=== PATIENT | male | born 2000 | race Caucasian/White ===

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

== ENCOUNTER → 2019-01-07 | Outpatient (CLI) | payer OTHER ==
--- NOTE | 2019-01-07 12:20 | Diagnostic Imaging Report ---
INDICATION: Right hand fracture, followup. TECHNIQUE: AP, oblique, and lateral views of the right hand were obtained. COMPARISON: 12/16/2018. FINDINGS: There is no change in the alignment or appearance of the fracture of the base of the fifth metacarpal. The remaining bony structures are intact. The joint spaces are unremarkable. IMPRESSION: Stable alignment of the fracture of the base of the fifth metacarpal with no new abnormality. Dictated by: Dictated on workstation # [id number]
== END ==
LOC: RAD FS 09:02
PROVIDERS: ATTEND Nurse Practitioner
DX: S62.316D Displaced fracture of base of fifth metacarpal bone, right hand, subsequent encounter for fracture with routine healing (principal)
CPT/HCPCS: 73130

== ENCOUNTER 2019-05-14 17:28 | Emergency (ER) | payer OTHER ==
[~2019-05-14] VITALS: Ht 182.8 cm; Wt 91.7 kg
[2019-05-14 17:40] VITALS: BP 141/77
--- NOTE | 2019-05-14 17:59 | ED Lower Extremity ---
General Chief Complaint: Lower Extremity Stated Complaint: KICK LEFT LEG BY COW History of Present Illness Date Seen by Provider: May 14, 2019 Time Seen by Provider: 17:35 Initial Comments The patient is a 19-year-old male who is otherwise healthy. He presents with concern for acute onset of left knee and upper pretibial discomfort medially with onset after being kicked by a cow in that area about 5 hours prior to arrival. Patient has been ambulatory with an antalgic gait on the leg in question since the injury. He took ibuprofen without complete relief of symptoms. No other injury during the episode. No other concerns today. Allergies and Home Medications Allergies Coded Allergies: No Known Drug Allergies (Unverified , 12/17/17) Home Medications Amoxicillin/Potassium Clav 1 Each Tablet, 1 EACH PO BID Prescribed by: SHERRY LOWRY on 12/20/17 112 Hydrocodone Bit/Acetaminophen 1 Tab Tab, 1-2 TAB PO Q4H PRN for PAIN-MODERATE Prescribed by: SHERRY LOWRY on 12/20/17 112 Prednisone 20 Mg Tab, 20 MG PO UD PREDNISONE 20MG TABLETS -TAKE 2 TABLETS BY MOUTH DAILY X3 DAYS -TAKE 1 TABLET BY MOUTH DAILY X3 DAYS -THEN OFF Prescribed by: SHERRY LOWRY on 12/20/17 1126 Patient Home Medication List Home Medication List Reviewed: Yes Review of Systems Constitutional: see HPI All Other Systems Reviewed Negative Unless Noted: Yes (Negative excepted noted.) Past Vxubihx-Gtnqfj-Lnavah Hx Past Med/Social Hx: Reviewed Nursing Past Med/Soc Hx Patient Social History Recent Foreign Travel: No Contact w/Someone Who Travel: No Recent Hopitalizations: No Seasonal Allergies Seasonal Allergies: No Past Medical History Appendectomy Reproductive Disorders: No Sexually Transmitted Disease: No HIV/AIDS: No Adverse Reaction/Blood Tranf: No (N/A) Family Medical History Reviewed Nursing Family Hx Physical Exam Vital Signs Capillary Refill : Height, Weight, BMI Height: 6'0.00" Weight: 190lbs. 0.0oz. [id number]; 25.8 BMI Method: General Appearance: no apparent distress This is a young male appearing nontoxic and in no acute distress. Head is normocephalic and atraumatic. Neck is supple and nontender. Oropharynx is moist. Lungs are clear to auscultation in all stations. There is a normal S1 and S2 without rubs or gallops and capillary refill is appropriate, less than 2 seconds globally. Abdomen is soft, nontender and nondistended. Skin is warm and dry without cyanosis, clubbing or edema. Psychiatrically, the patient demonstrates appropriate mood and affect and is alert. For a musculoskeletal standpoint, evaluation of the left lower extremity is remarkable for mild tenderness and swelling to the inferomedial aspect of the left knee and the superomedial aspect of the left pretibial area. Mild limitation in ranging actively and passively secondary to discomfort. Lockman's and anterior and pos terior drawer testing are negative. No pain with ranging of any other joint of the left lower extremity. The left lower extremity is neurovascularly intact distally with strength 5 out of 5, sensation intact to light touch in all nerve distributions, DP/PT pulses 2+, capillary refill less than 2 seconds, foot warm and well-perfused. Progress/Results/Core Measures Results/Orders My Orders Orders - POONAM KELSEY MD Ibuprofen Tablet (Motrin Tablet) (05/14/19 18:00) Acetaminophen Tablet/Caplet (Tylenol T (05/14/19 18:00) Knee 3 View Left (05/14/19 17:50) Tibia Fibula 2 View Left (05/14/19 17:50) Medications Given in ED Current Medications Medications Dose Ordered Sig/Maurice Route Start Time Stop Time Status Last Admin Dose Admin Acetaminophen 975 mg ONCE ONCE PO 05/14/19 18:00 05/14/19 18:01 DC 05/14/19 18:08 975 MG Progress Progress Note : Time: 17:58 Progress Note Clinical examination reassuring. Unlikely there is a fracture based on examination and the patient's ability to ambulate. We will check plain films and give ibuprofen and Tylenol and an ice pack and will plan for Korey wrap and crutches for weightbearing as tolerated if imaging is negative. Patient and family understand and agree with this plan of care. Update 1820: Plain films are negative and patient is feeling better after medications. We'll proceed with discharge home as per plan above. Patient is counseled to follow up with primary care in the next 2-4 days, to weight-bear as tolerated and to rest, ice and elevate his left leg. He understands that if he feels worse is that of better or develops other new symptoms of concern that he should return to the emergency department immediately for reevaluation. All questions are answered. Diagnostic Imaging Comments XR knee and tib/fib L: no acute process, EP and rad interp Departure Impression Primary Impression: Contusion of left knee, initial encounter Disposition: 01 HOME, SELF-CARE Condition: Improved Departure-Patient Inst. Referrals: ALYSIA PAULA MD (PCP/Family) Primary Care Physician Patient Instructions: Contusion (DC) Add. Discharge Instructions: X-rays showed no fractures today. Your knee and upper mcghee are most likely bruised. You may bear weight on her your left leg as tolerated. Rest, ice and elevate your leg and allow it to heal. He may follow up with her primary care doctor in the next 2-4 days. If your knee doesn't improve in the next week or two, you may ultimately need an MRI to further evaluate your injuries, but your knee will likely heal before that. Return to the emergency department right away with worsen symptoms or other new concerns. Scripts Acetaminophen (Tylenol) 325 Mg Capsule 975 MG PO Q8H for 4 Days, #50 CAP Prov: POONAM KELSEY MD 05/14/19 Ibuprofen (Ibuprofen) 800 Mg Tablet 800 MG PO Q8H PRN for PAIN, #30 TAB 0 Refills Prov: POONAM KELSEY MD 05/14/19 POONAM KELSEY MD May 14, 2019 17:59 POS
[2019-05-14] MEDS ORDERED: IBUPROFEN 800 MG (MOTRIN) TAB PO SCH (18:00)
[2019-05-14] MEDS ORDERED: ACETAMINOPHEN 325 MG TABLET PO ONE (18:00)
--- NOTE | 2019-05-14 18:14 | Diagnostic Imaging Report ---
INDICATION: Left lower leg injury AP and lateral views of the left tibia-fibula show no fracture or dislocation. IMPRESSION: Negative left tibia and fibula Dictated by: Dictated on workstation # [id number]
--- NOTE | 2019-05-14 18:15 | Diagnostic Imaging Report ---
INDICATION: Knee injury. FINDINGS: Three views of the left knee show no fracture or dislocation. IMPRESSION: Negative left knee. Dictated by: Dictated on workstation # [id number]
[2019-05-14] MEDS ORDERED: IBUP-1780 PO (18:26)
[2019-05-14] MEDS ORDERED: ACET325C5 PO (18:26)
== END 2019-05-14 18:43 | disposition home or self-care (01) ==
LOC: EDUNIT# 17:28 → ER FS 17:30
DX: S80.02XA Contusion of left knee, initial encounter (principal); Z79.52 Long term (current) use of systemic steroids; W55.22XA Struck by cow, initial encounter
CPT/HCPCS: 73562; 73590

== ENCOUNTER 2021-02-24 14:40 | Emergency (ER) | payer OTHER ==
[~2021-02-24] VITALS: Ht 182.8 cm; Wt 90.7 kg
[~2021-02-24 14:40] MED LIST changes: +ACET325C7 PO; +IBUP-1780 PO
[2021-02-24] MEDS ORDERED: LACTATED RINGERS 1,000 ML IV STA (14:54)
--- NOTE | 2021-02-24 14:54 | ED General ---
General Stated Complaint: FACE SWELLING History of Present Illness Date Seen by Provider: Feb 24, 2021 Time Seen by Provider: 14:53 Initial Comments 21-year-old male presents because he feels like he is having a little facial swelling. The facial swelling is mainly in the periorbital region. Reports been going on for couple days. He tried 25 mg of Benadryl last night 25 mg of Benadryl the day. Patient also feels like he is having maybe little tingling in his feet. Patient is known Covid positive with diagnosis on 02/19/2021. Patient does not complain of shortness of breath, fevers chills. No nausea or vomiting. Patient is not vaccinated. Allergies and Home Medications Allergies Coded Allergies: No Known Drug Allergies (Unverified , 12/17/17) Patient Home Medication List Home Medication List Reviewed: Yes Review of Systems Review of Systems Constitutional: see HPI; No chills, No fever EENTM: see HPI Respiratory: No cough, No short of breath Cardiovascular: no symptoms reported Gastrointestinal: no symptoms reported Genitourinary: no symptoms reported Musculoskeletal: no symptoms reported Skin: see HPI Psychiatric/Neurological: See HPI Hematologic/Lymphatic: No Symptoms Reported Physical Exam Vital Signs Vital Signs - First Documented 02/24/21 14:40 Temp 36.2 Pulse 102 Resp 24 B/P (MAP) 145/83 (103) Pulse Ox 100 O2 Delivery Room Air Capillary Refill : Height, Weight, BMI Height: '" Weight: lbs. oz. kg; BMI Method: General Appearance: No Apparent Distress, WD/WN Eyes: Bilateral Eye Other (Very minimal periorbital swelling consistent with what appears to be like an allergic reaction or allergic rhinitis) HEENT: Moist Mucous Membranes Neck: Non Tender, Supple Respiratory: Lungs Clear, Normal Breath Sounds Cardiovascular: Regular Rate, Rhythm, No Edema Gastrointestinal: Non Tender, Soft Extremity: Normal Capillary Refill, Normal Inspection Neurologic/Psychiatric: Alert, Oriented x3, Normal Mood/Affect, health care consultant II-XII Norm as Tested Skin: Normal Color, Warm/Dry Progress/Results/Core Measures Suspected Sepsis SIRS Temperature: Pulse: Respiratory Rate: Laboratory Tests 02/24/21 14:58: White Blood Count 6.7 Blood Pressure / Mean: Laboratory Tests 02/24/21 14:58: Creatinine 0.91, Platelet Count 196, Total Bilirubin 0.4 Results/Orders Lab Results Laboratory Tests Test 02/24/21 14:58 02/24/21 15:25 Range/Units White Blood Count 6.7 4.3-11.0 10^3/uL Red Blood Count 6.12 H 4.30-5.52 10^6/uL Hemoglobin 18.9 H 13.3-17.7 g/dL Hematocrit 53 40-54 % Mean Corpuscular Volume 87 80-99 fL Mean Corpuscular Hemoglobin 31 25-34 pg Mean Corpuscular Hemoglobin Concent 36 32-36 g/dL Red Cell Distribution Width 12.2 10.0-14.5 % Platelet Count 196 130-400 10^3/uL Mean Platelet Volume 10.1 9.0-12.2 fL Immature Granulocyte % (Auto) 0 % Neutrophils (%) (Auto) 52 42-75 % Lymphocytes (%) (Auto) 27 12-44 % Monocytes (%) (Auto) 14 H 0-12 % Eosinophils (%) (Auto) 7 0-10 % Basophils (%) (Auto) 0 0-10 % Neutrophils # (Auto) 3.5 1.8-7.8 X 10^3 Lymphocytes # (Auto) 1.8 1.0-4.0 X 10^3 Monocytes # (Auto) 0.9 0.0-1.0 X 10^3 Eosinophils # (Auto) 0.5 H 0.0-0.3 10^3/uL Basophils # (Auto) 0.0 0.0-0.1 10^3/uL Immature Granulocyte # (Auto) 0.0 0.0-0.1 10^3/uL Sodium Level 134 L 135-145 MMOL/L Potassium Level 4.4 3.6-5.0 MMOL/L Chloride Level 100 98-107 MMOL/L Carbon Dioxide Level 25 21-32 MMOL/L Anion Gap 9 5-14 MMOL/L Blood Urea Nitrogen 15 7-18 MG/DL Creatinine 0.91 0.60-1.30 MG/DL Estimat Glomerular Filtration Rate 104 BUN/Creatinine Ratio 16 Glucose Level 103 70-105 MG/DL Calcium Level 8.3 L 8.5-10.1 MG/DL Corrected Calcium 8.6 8.5-10.1 MG/DL Magnesium Level 1.8 1.6-2.4 MG/DL Total Bilirubin 0.4 0.1-1.0 MG/DL Aspartate Amino Transf (AST/SGOT) 28 5-34 U/L Alanine Aminotransferase (ALT/SGPT) 22 0-55 U/L Alkaline Phosphatase 67 40-136 U/L Total Protein 6.4 6.4-8.2 GM/DL Albumin 3.6 3.2-4.5 GM/DL Urine Color YELLOW Urine Clarity CLEAR Urine pH 5.5 5-9 Urine Specific [place] 1.025 H 1.016-1.022 Urine Protein NEGATIVE NEGATIVE Urine Glucose (UA) NEGATIVE NEGATIVE Urine Ketones NEGATIVE NEGATIVE Urine Nitrite NEGATIVE NEGATIVE Urine Bilirubin NEGATIVE NEGATIVE Urine Urobilinogen 0.2 < = 1.0 MG/DL Urine Leukocyte Esterase NEGATIVE NEGATIVE Urine RBC (Auto) NEGATIVE NEGATIVE Urine RBC NONE /HPF Urine WBC RARE /HPF Urine Squamous Epithelial Cells RARE /HPF Urine Crystals NONE /LPF Urine Bacteria NEGATIVE /HPF Urine Casts NONE /LPF Urine Mucus MODERATE H /LPF Urine Culture Indicated NO My Orders Orders - SCHULTZ,MOO L DO Cbc With Automated Diff (02/24/21 14:54) Comprehensive Metabolic Panel (02/24/21 14:54) Magnesium (02/24/21 14:54) Ua Culture If Indicated (02/24/21 14:54) Lactated Ringers (Lr 1000 Ml Iv Solution (02/24/21 14:54) Chest 1 View Ap/Pa Only (02/24/21 14:54) Covid-19 External Lab Results (02/24/21 15:40) Vital Signs/I&O 02/24/21 14:40 Temp 36.2 Pulse 102 Resp 24 B/P (MAP) 145/83 (103) Pulse Ox 100 O2 Delivery Room Air Capillary Refill : Progress Note : Progress Note Patient with no significant findings on labs. Patient with minimal facial swelling. Discussed with him that could be as a result of Covid, possible sun exposure, possible reaction to his mask or even seasonal allergies. Recommend he try some Zyrtec or Isa or other similar medication. Patient stable and discharged ECG Initial ECG Impression Date: Feb 24, 2021 Initial ECG Impression Time: 15:06 Initial ECG Rhythm: Normal Sinus Initial ECG Intervals LBBB Comment LBBB, probable left atrial enlargement Diagnostic Imaging Diagonstic Imaging: Xray Plain Films/CT/US/NM/MRI: chest Comments CHEST 1 VIEW AP/PA ONLY INDICATION: Facial swelling, COVID. FINDINGS: The lungs appeared clear. Lung volumes are symmetric and normal. No failure, effusion, or pneumothorax. Cardiomediastinal and hilar contours are normal. IMPRESSION: Normal frontal chest x-ray. Departure Impression Primary Impression: COVID-19 Additional Impression: Swelling of face Disposition: HOME, SELF-CARE Condition: Stable Departure-Patient Inst. Patient Instructions: COVID-19 Overview Add. Discharge Instructions: Zyrtec, Isa or other similar [id number] allergy medication 50 mg Benadryl every 8 hours if helps with symptoms Drink plenty of fluid Follow-up with your primary care provider if swelling worsens or if any other concerns MOO SCHULTZ DO Feb 24, 2021 14:54
[2021-02-24 15:12] LABS: HEMATOCRIT 53 % (40-54); HEMOGLOBIN 18.9 g/dL (13.3-17.7); MEAN CORPUSCULAR HEMOGLOBIN 31 pg (25-34); MEAN CORPUSCULAR HGB CONC 36 g/dL (32-36); WHITE BLOOD COUNT 6.7 10^3/uL (4.3-11.0)
[2021-02-24 15:13] LABS: BASOPHILS % (AUTO) 0 % (0-10); EOSINOPHILS % (AUTO) 7 % (0-10); LYMPHOCYTES % (AUTO) 27 % (12-44); MEAN CORPUSCULAR VOLUME 87 fL (80-99); MEAN PLATELET VOLUME 10.1 fL (9.0-12.2); MONOCYTES % (AUTO) 14 % (0-12); NEUTROPHILS % (AUTO) 52 % (42-75); PLATELET COUNT 196 10^3/uL (130-400)
[2021-02-24 15:14] LABS: EOSINOPHILS # (AUTO) 0.5 10^3/uL (0.0-0.3); LYMPHOCYTES # (AUTO) 1.8 X 10^3 (1.0-4.0); MONOCYTES # (AUTO) 0.9 X 10^3 (0.0-1.0); NEUTROPHILS # (AUTO) 3.5 X 10^3 (1.8-7.8)
[2021-02-24] MEDS ORDERED: Aspirin (15:17)
[2021-02-24] MEDS ORDERED: Miralax (15:17)
[2021-02-24] MEDS ORDERED: Vitamin D (15:17)
[2021-02-24] MEDS ORDERED: Vitamin C (15:17)
[2021-02-24] MEDS ORDERED: Ibuprofen (15:17)
[2021-02-24] MEDS ORDERED: Benadryl (15:17)
[2021-02-24] MEDS ORDERED: Zinc (15:17)
--- NOTE | 2021-02-24 15:19 | Diagnostic Imaging Report ---
INDICATION: Facial swelling, COVID. FINDINGS: The lungs appeared clear. Lung volumes are symmetric and normal. No failure, effusion, or pneumothorax. Cardiomediastinal and hilar contours are normal. IMPRESSION: Normal frontal chest x-ray. Dictated by: Dictated on workstation # [id number]
[2021-02-24 15:31] LABS: ALBUMIN 3.6 GM/DL (3.2-4.5); BILIRUBIN,TOTAL 0.4 MG/DL (0.1-1.0); CALCIUM 8.3 MG/DL (8.5-10.1); CREATININE SERUM 0.91 MG/DL (0.60-1.30); MAGNESIUM 1.8 MG/DL (1.6-2.4); POTASSIUM 4.4 MMOL/L (3.6-5.0); TOTAL PROTEIN 6.4 GM/DL (6.4-8.2)
[2021-02-24 15:41] LABS: BILIRUBIN,URINE NEGATIVE (NEGATIVE); CLARITY,URINE CLEAR; COLOR,URINE YELLOW; GLUCOSE, URINE (UA) NEGATIVE (NEGATIVE); KETONES,URINE NEGATIVE (NEGATIVE); LEUKOCYTE ESTERASE ,URINE NEGATIVE (NEGATIVE); NITRITE,URINE NEGATIVE (NEGATIVE); PH,URINE 5.5 (5-9); PROTEIN,URINE NEGATIVE (NEGATIVE)
[2021-02-24 16:05] LABS: BACTERIA,URINE NEGATIVE /HPF; SQUAMOUS EPITHELIAL CELL,UR RARE /HPF; WBC,URINE RARE /HPF
[2021-02-24 16:18] VITALS: BP 116/68
== END 2021-02-24 16:18 | disposition home or self-care (01) ==
LOC: EDUNIT# 14:50 → ER FS 14:53
DX: U07.1 COVID-19 (principal); R60.9 Edema, unspecified
CPT/HCPCS: 36415; 71045; 80053; 81000; 83735; 85025

== ENCOUNTER 2022-01-12 14:15 | Emergency (ER) | payer OTHER ==
[~2022-01-12] VITALS: Ht 185.4 cm; Wt 96.1 kg
[~2022-01-12 14:15] MED LIST changes: +Aspirin; +Benadryl; +Ibuprofen; +Miralax; +Vitamin C; +Vitamin D; +Zinc
[2022-01-12 14:59] LABS: BASOPHILS # (AUTO) 0.1 10^3/uL (0.0-0.1); BASOPHILS % (AUTO) 0 % (0-10); EOSINOPHILS # (AUTO) 0.3 10^3/uL (0.0-0.3); EOSINOPHILS % (AUTO) 3 % (0-10); HEMATOCRIT 49 % (40-54); HEMOGLOBIN 17.5 g/dL (13.3-17.7); LYMPHOCYTES # (AUTO) 1.3 10^3/uL (1.0-4.0); LYMPHOCYTES % (AUTO) 11 % (12-44); MEAN CORPUSCULAR HEMOGLOBIN 31 pg (25-34); MEAN CORPUSCULAR HGB CONC 36 g/dL (32-36); MEAN CORPUSCULAR VOLUME 87 fL (80-99); MONOCYTES # (AUTO) 1.1 10^3/uL (0.0-1.0); MONOCYTES % (AUTO) 10 % (0-12); NEUTROPHILS # (AUTO) 8.8 10^3/uL (1.8-7.8); NEUTROPHILS % (AUTO) 76 % (42-75); PLATELET COUNT 253 10^3/uL (130-400); WHITE BLOOD COUNT 11.5 10^3/uL (4.3-11.0)
[2022-01-12] MEDS ORDERED: NS IV 1000 ML 1,000 ML IV SCH (15:00)
[2022-01-12] MEDS ORDERED: RT-ALBUTEROL/IPRATROPIUM 3 ML (DUONEB) VIAL INH ONE (15:00)
--- NOTE | 2022-01-12 15:08 | Diagnostic Imaging Report ---
INDICATION: Cough and shortness of breath. TIME OF EXAM: 03:00 p.m. COMPARISON: Comparison is made with prior chest from 02/24/2021. FINDINGS: The heart size is normal. There appears to be some minimal infiltrate in the right upper lobe. Otherwise, the lungs are clear. No effusion is seen. There is no pneumothorax. IMPRESSION: Minimal patchy right upper lobe infiltrate. Dictated by: Dictated on workstation # [id number]
[2022-01-12 15:29] LABS: ALANINE AMINOTRANSFERASE 34 U/L (0-55); ALBUMIN 5.1 GM/DL (3.2-4.5); ALKALINE PHOSPHATASE 85 U/L (40-136); BILIRUBIN,TOTAL 0.8 MG/DL (0.1-1.0); BUN/CREATININE RATIO 10; CALCIUM 9.9 MG/DL (8.5-10.1); CARBON DIOXIDE 24 MMOL/L (21-32); CHLORIDE 98 MMOL/L (98-107); CREATININE SERUM 0.79 MG/DL (0.60-1.30); GFR ESTIMATED 129; GLUCOSE 106 MG/DL (70-105); SODIUM 136 MMOL/L (135-145); TOTAL PROTEIN 8.8 GM/DL (6.4-8.2)
[2022-01-12] MEDS ORDERED: cefTRIAXone 1 GM PRE-MIX 50 ML IV ONE (15:45)
--- NOTE | 2022-01-12 15:46 | ED Respiratory ---
General Chief Complaint: COVID19 Suspect/Confirmed Stated Complaint: SOB; O2 86 Nursing Triage Note: Patient presents to the ED with c/o cough, shortness of breath, fever. Reports symptoms began Sunday. Was seen at urgent care today, tested negative for COVID. Urgent care administered a Duoneb treatment and sent to ED for further evaluation. Patient states they told him his oxygen saturation was 86% on room air. Source: patient Exam Limitations: no limitations History of Present Illness Date Seen by Provider: Jan 12, 2022 Time Seen by Provider: 14:40 Initial Comments 21-year-old none male patient with history of asthma complaining of productive cough with yellow sputum, shortness of breath with exertion and during episode of cough, nasal congestion, chest soreness with cough, fever up to 101, headache and generalized weakness for the last 3 days that gradually getting worse. Patient denies sick contact, vomiting and diarrhea, earache, urinary symptoms. Patient complaining of sore throat the first day that resolved spontaneously. Patient was seen at urgent care today and had a negative COVID test and O2 sat of 87% and sent to ER. Patient's hands was cold and he did not have hypoxia with checking his O2 sat with applying sensor on his earlobe and his O2 sat was more than %95. Allergies and Home Medications Allergies Coded Allergies: No Known Drug Allergies (Unverified , 12/17/17) Patient Home Medication List Home Medication List Reviewed: Yes Albuterol Sulfate (Ventolin Hfa) 1 Puff Puff, 2 PUFF INH Q4H Prescribed by: Mony jimenez on 01/12/221550 Azithromycin (Azithromycin) 250 Mg Tablet, 250 MG PO UD Prescribed by: Mony jimenez on 01/12/221550 Benzonatate (Tessalon Perles) 100 Mg Capsule, 100 MG PO Q6H PRN for cough Prescribed by: Mony jimenez on 01/12/221550 Methylprednisolone (Methylprednisolone Dose Pack) 4 Mg Tab.ds.pk, 4 MG PO UD Prescribed by: Mony jimenez on 01/12/221550 [Aspirin] , (Reported) Entered as Reported by: LUANN ESTEBAN on 02/24/211516 [Benadryl] , (Reported) Entered as Reported by: LUANN ESTEBAN on 02/24/211516 [Ibuprofen] , (Reported) Entered as Reported by: LUANN ESETBAN on 02/24/211516 [Miralax] , (Reported) Entered as Reported by: LUANN ESTEBAN on 02/24/211516 [Vitamin C] , (Reported) Entered as Reported by: LUANN ESTEBAN on 02/24/211516 [Vitamin D] , (Reported) Entered as Reported by: LUANN ESTEBAN on 02/24/211516 [Zinc] , (Reported) Entered as Reported by: LUANN ESTEBAN on 02/24/211516 Review of Systems Review of Systems Constitutional: see HPI EENTM: see HPI Respiratory: see HPI Cardiovascular: see HPI Gastrointestinal: no symptoms reported Genitourinary: no symptoms reported Musculoskeletal: no symptoms reported Skin: no symptoms reported Psychiatric/Neurological: No Symptoms Reported Hematologic/Lymphatic: No Symptoms Reported Immunological/Allergic: no symptoms reported All Other Systems Reviewed Negative Unless Noted: Yes Past Zeorzhd-Fipkil-Ttypvv Hx Patient Social History Tobacco Use?: No Substance use?: No Alcohol Use?: No Pt feels they are or have been: No Immunizations Up To Date First/Initial COVID19 Vaccinat: Not currently vaccinated Seasonal Allergies Seasonal Allergies: No Past Medical History Surgery/Hospitalization HX: appendectomy, sinus surgery; Asthma Surgeries: Yes Appendectomy Respiratory: No Cardiac: No Neurological: No Reproductive Disorders: No Sexually Transmitted Disease: No HIV/AIDS: No Genitourinary: No Gastrointestinal: No Musculoskeletal: No Endocrine: No HEENT: No Cancer: No Psychosocial: No Integumentary: No Blood Disorders: No Adverse Reaction/Blood Tranf: No (N/A) Physical Exam Vital Signs - First Documented 01/12/22 14:24 Temp 37.2 Pulse 107 Resp 14 B/P (MAP) 143/82 (102) Pulse Ox 97 O2 Delivery Room Air Capillary Refill : Less Than 3 Seconds Height: 6'0.00" Weight: 190lbs. 0.0oz. 86.303462ur; 27.00 BMI Method: General Appearance: mild distress Eyes: Bilateral Eye Normal Inspection HEENT: PERRL/EOMI, normal ENT inspection, TMs normal Neck: non-tender, full range of motion, supple Respiratory: chest non-tender, no respiratory distress, no accessory muscle use, wheezing Cardiovascular: regular rate, rhythm, no edema, no gallop Gastrointestinal: normal bowel sounds, non tender Extremities: normal range of motion, non-tender Neurologic/Psychiatric: no motor/sensory deficits, alert, normal mood/affect, oriented x 3 Skin: normal color, warm/dry Focused Exam Lactate Level 01/12/22 14:26: Lactic Acid Level 1.71 Lactic Acid Level Laboratory Tests Test 01/12/22 14:26 Lactic Acid Level 1.71 MMOL/L (0.50-2.00) Progress/Results/Core Measures Suspected Sepsis SIRS Temperature: Pulse: 107 Respiratory Rate: 14 Laboratory Tests 01/12/22 14:26: White Blood Count 11.5H Blood Pressure 143 /82 Mean: 102 01/12/22 14:26: Lactic Acid Level 1.71 Laboratory Tests 01/12/22 14:26: Creatinine 0.79, Platelet Count 253, Total Bilirubin 0.8 Results/Orders Lab Results Laboratory Tests Test 01/12/22 14:26 Range/Units White Blood Count 11.5 H 4.3-11.0 10^3/uL Red Blood Count 5.65 H 4.30-5.52 10^6/uL Hemoglobin 17.5 13.3-17.7 g/dL Hematocrit 49 40-54 % Mean Corpuscular Volume 87 80-99 fL Mean Corpuscular Hemoglobin 31 25-34 pg Mean Corpuscular Hemoglobin Concent 36 32-36 g/dL Red Cell Distribution Width 11.8 10.0-14.5 % Platelet Count 253 130-400 10^3/uL Mean Platelet Volume 10.0 9.0-12.2 fL Immature Granulocyte % (Auto) 0 % Neutrophils (%) (Auto) 76 H 42-75 % Lymphocytes (%) (Auto) 11 L 12-44 % Monocytes (%) (Auto) 10 0-12 % Eosinophils (%) (Auto) 3 0-10 % Basophils (%) (Auto) 0 0-10 % Neutrophils # (Auto) 8.8 H 1.8-7.8 10^3/uL Lymphocytes # (Auto) 1.3 1.0-4.0 10^3/uL Monocytes # (Auto) 1.1 H 0.0-1.0 10^3/uL Eosinophils # (Auto) 0.3 0.0-0.3 10^3/uL Basophils # (Auto) 0.1 0.0-0.1 10^3/uL Immature Granulocyte # (Auto) 0.0 0.0-0.1 10^3/uL Sodium Level 136 135-145 MMOL/L Potassium Level 4.0 3.6-5.0 MMOL/L Chloride Level 98 98-107 MMOL/L Carbon Dioxide Level 24 21-32 MMOL/L Anion Gap 14 5-14 MMOL/L Blood Urea Nitrogen 8 7-18 MG/DL Creatinine 0.79 0.60-1.30 MG/DL Estimat Glomerular Filtration Rate 129 BUN/Creatinine Ratio 10 Glucose Level 106 H 70-105 MG/DL Lactic Acid Level 1.71 0.50-2.00 MMOL/L Calcium Level 9.9 8.5-10.1 MG/DL Corrected Calcium 8.5-10.1 MG/DL Total Bilirubin 0.8 0.1-1.0 MG/DL Aspartate Amino Transf (AST/SGOT) 24 5-34 U/L Alanine Aminotransferase (ALT/SGPT) 34 0-55 U/L Alkaline Phosphatase 85 40-136 U/L Total Protein 8.8 H 6.4-8.2 GM/DL Albumin 5.1 H 3.2-4.5 GM/DL Influenza Type A (RT-PCR) Not Detected Not Detecte Influenza Type B (RT-PCR) Not Detected Not Detecte SARS-CoV-2 RNA (RT-PCR) Not Detected Not Detecte My Orders Orders - MONY JIMENEZ MD Ed Iv/Invasive Line Start (01/12/22 14:46) Cbc With Automated Diff (01/12/22 14:46) Comprehensive Metabolic Panel (01/12/22 14:46) Lactic Acid Analyzer (01/12/22 14:46) Ns Iv 1000 Ml (Sodium Chloride 0.9%) (01/12/22 15:00) Chest Pa/Lat (2 View) (01/12/22 14:46) Albuterol/Ipra Inhalation Soln (Duoneb I (01/12/22 15:00) Svn Small Volume Nebulizer (01/12/22 14:46) Covid 19 Inhouse Test (01/12/22 14:46) Influenza A And B By Pcr (01/12/22 14:46) Ceftriaxone 1 Gm Pre-Mix (Rocephin 1 Gm (01/12/22 15:45) Medications Given in ED Current Medications Medications Dose Ordered Sig/Maurice Route Start Time Stop Time Status Last Admin Dose Admin Albuterol/ Ipratropium 3 ml ONCE ONCE INH 01/12/22 15:00 01/12/22 15:01 DC 01/12/22 14:56 3 ML Vital Signs/I&O 01/12/22 14:24 Temp 37.2 Pulse 107 Resp 14 B/P (MAP) 143/82 (102) Pulse Ox 97 O2 Delivery Room Air Capillary Refill : Less Than 3 Seconds Blood Pressure Mean: 102 Progress Note : Progress Note Evaluation of patient in ER showed 21-year-old male patient with history of asthma with complaining of productive cough and fever and shortness of breath fo r 3 days. Patient was afebrile in ER and had O2 sat of more than 95%. Patient had diffuse wheezing and treated with IV fluids and DuoNeb with improvement of his condition. White count was 11.7 without elevation of lactic acid. Chest x- ray showed marked right upper lobe patchy infiltrate. Patient treated with Rocephin in ER and plan to discharge home with prescription of Zithromax, Medrol Dosepak, Tessalon, albuterol inhaler. Patient advised to increase fluid intake and [id number] Tylenol and ibuprofen as needed for fever and pain. Diagnostic Imaging Plain Films/CT/US/NM/MRI: chest Comments 2 view chest x-ray interpreted by radiologist and reviewed by me and showed: NAME: [facility] REC#: [id number] PT STATUS: REG ER : 09/06/1961 PHYSICIAN: MONY JIMENEZ MD ADMIT DATE: 01/12/22/ER FS Draft Date of Exam:01/12/22 CT HEAD WO PROCEDURE: CT head without contrast. TECHNIQUE: Multiple contiguous axial images were obtained through the brain without the use of intravenous contrast. Auto Exposure Controls were utilized during the CT exam to meet ALARA standards for radiation dose reduction. INDICATION: Syncope. COMPARISON: No prior studies are available for comparison. FINDINGS: The ventricles and sulci are within normal limits. No sulcal effacement or midline shift is identified. No acute intra-axial or extra-axial hemorrhage is detected. Cisterns are patent. The visualized paranasal sinuses are clear. IMPRESSION: No acute intracranial process is detected. Dictated on workstation # [id number] Dict: 01/12/22 1259 Trans: 01/12/22 1303 [id number] Interpreted by: FORREST CAPELLAN MD Electronically signed by: Departure Impression Primary Impression: Infiltrate of upper lobe of right lung present on imaging study Additional Impressions: Pneumonia Qualified Codes: J18.9 - Pneumonia, unspecified organism Asthma exacerbation Qualified Codes: J45.21 - Mild intermittent asthma with (acute) exacerbation Disposition: HOME, SELF-CARE Condition: Improved Departure-Patient Inst. Decision time for Depature: 15:48 Referrals: ALYSIA PAULA MD (PCP) Primary Care Physician Patient Instructions: Pneumonia in Adults, Asthma, Adult (DC), Oral Steroid Medicines, How to Use Your Dry Powder Inhaler (Adults) Add. Discharge Instructions: Drink plenty of liquid Take Tylenol and ibuprofen as needed for fever and pain Follow-up with your primary care physician or return to ER as needed All discharge instructions reviewed with patient and/or family. Voiced understanding. Scripts Albuterol Sulfate (VENTOLIN HFA) 1 Puff Puff 2 PUFF INH Q4H, #1 EA 1 PUFF = 90 MCG Prov: MONY IJMENEZ MD 01/12/22 Benzonatate (TESSALON PERLES) 100 Mg Capsule 100 MG PO Q6H PRN for cough, #30 CAP Prov: MONY JIMENEZ MD 01/12/22 Methylprednisolone (Methylprednisolone Dose Pack) 4 Mg Tab.ds.pk 4 MG PO UD for asthma for 6 Days, #21 PKG PER DOSE PACK INSTRUCTIONS Prov: MONY JIMENEZ MD 01/12/22 Azithromycin (Azithromycin) 250 Mg Tablet 250 MG PO UD, #6 TAB TAKE 2 TABLETS ON DAY ONE THEN TAKE 1 TABLET DAILY FOR FOUR MORE DAYS Prov: MONY JIMENEZ MD 01/12/22 MONY JIMENEZ MD Jan 12, 2022 15:46
[2022-01-12] MEDS ORDERED: AZIT250T12 PO (15:51)
[2022-01-12] MEDS ORDERED: RT-ALBUINH INH (15:51)
[2022-01-12] MEDS ORDERED: BENZ100C18 PO (15:51)
[2022-01-12] MEDS ORDERED: METH4TAB10 PO (15:51)
[2022-01-12 16:30] VITALS: BP 136/83
== END 2022-01-12 16:28 | disposition home or self-care (01) ==
LOC: EDUNIT# 14:15 → ER FS 14:16
DX: J18.9 Pneumonia, unspecified organism (principal); J45.901 Unspecified asthma with (acute) exacerbation; R91.8 Other nonspecific abnormal finding of lung field; Z20.822 Contact with and (suspected) exposure to COVID-19; Z28.310 Unvaccinated for COVID-19
CPT/HCPCS: 36415; 71046; 80053; 83605; 85025; 87636